=== PATIENT | male | born 1990 | race Caucasian/White ===

== ENCOUNTER 2016-12-03 16:59 | Emergency (ER) | payer OTHER ==
[~2016-12-03] VITALS: Ht 182.9 cm; Wt 61.2 kg
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
== END 2016-12-03 22:25 | disposition home or self-care (01) ==
LOC: CED 16:59 → CFTX 16:59 → CED 19:11
DX: S83.92XA Sprain of unspecified site of left knee, initial encounter (principal); V89.9XXA Person injured in unspecified vehicle accident, initial encounter
CPT/HCPCS: 70450; 72040; 73502; 73562; 99284